=== PATIENT | female | born 1960 | race Caucasian/White ===

== ENCOUNTER 2018-04-30 16:45 | Emergency (ER) | payer SELFPAY ==
[~2018-04-30] VITALS: Ht 157.5 cm; Wt 54.4 kg
--- OUTSIDE RECORDS SUMMARY | 2018-04-30 16:47 | XMS REPORT ---
[facility] Address Unknown Phone Unavailable Care Team Providers Care Administrative Project Coordinator Name Role Phone Unavailable Unavailable Payers Payer Name Policy Type Policy Number Effective Date Expiration Date Problems This patient has no known problems. Allergies, Adverse Reactions, Alerts Allergy Name Allergy Type Status Severity Reaction(s) Onset Date Inactive Date Treating Clinician Comments No Known Allergies DA Active U 2018-04-30 00:00:00 No Known Allergies DA Active U 2017-03-22 00:00:00 Medications This patient has no known medications.
[2018-04-30] MEDS ORDERED: LABETALOL HCL 5 MG/ML 20ML VIAL IV STA (17:07)
--- NOTE | 2018-04-30 18:11 | Diagnostic Imaging Report ---
EXAMINATION: CHEST SINGLE (PORTABLE) INDICATION: Hypertension/back pain ^HTN ^[id number] ^[id number] COMPARISON: None FINDINGS: AP view TUBES and LINES: None. LUNGS: Lungs are well inflated. Lungs are clear. There is no evidence of pneumonia or pulmonary edema. PLEURA: No pleural effusion or pneumothorax. HEART AND MEDIASTINUM: Aortic calcifications. The cardiomediastinal silhouette is unremarkable. BONES AND SOFT TISSUES: No acute osseous lesion. Soft tissues are unremarkable. UPPER ABDOMEN: No free air under the diaphragm. IMPRESSION: No acute thoracic abnormality. Signed by: DR. Sawyer Dahl MD on 04/30/2018 6:07 PM
[2018-04-30] MEDS ORDERED: HYDROCODONE/APAP 5MG-325MG TAB PO ONE (18:15)
--- NOTE | 2018-04-30 19:26 | Diagnostic Imaging Report ---
Lumbar Spine Radiographs: 3 views HISTORY: Trauma, back pain.. COMPARISON: None available. DISCUSSION: Some of the osseous structures are partially obscured by stool and bowel gas. There are five non-rib bearing lumbar vertebral bodies. The alignment of the spine is within normal limits. No displaced fracture or compression deformity is identified. Disc Spaces: Mild disc space narrowing at L4-L5. Moderate disc space narrowing at L5-S1. Facets: Mild facet arthrosis of the lower lumbar spine. IMPRESSION: No acute radiographic abnormality. Signed by: DR. Sawyer Dahl MD on 04/30/2018 7:23 PM
[2018-04-30 20:25] VITALS: BP 176/101
[2018-05-22] MEDS ORDERED: ASPIR 8181 MG PO (17:13)
[2018-05-22] MEDS ORDERED: FOLIC ACID1 MG PO (17:13)
[2018-05-22] MEDS ORDERED: PEPCID20 MG PO (17:13)
[2018-05-22] MEDS ORDERED: KEFLEX500 MG PO (17:13)
[2018-05-22] MEDS ORDERED: FLAGYL500 MG PO (17:13)
[2018-05-22] MEDS ORDERED: VITAMIN B-1100 MG PO (17:13)
== END 2018-04-30 20:45 | disposition home or self-care (01) ==
LOC: ER 16:45
DX: M54.5 Low back pain (principal); S39.012A Strain of muscle, fascia and tendon of lower back, initial encounter; X50.0XXA Overexertion from strenuous movement or load, initial encounter; Y99.0 Civilian activity done for income or pay; I10 Essential (primary) hypertension; F17.210 Nicotine dependence, cigarettes, uncomplicated
CPT/HCPCS: 71045; 72110; 99283; J3490

== ENCOUNTER 2018-05-21 12:12 | Observation (INO) | payer SELFPAY ==
[~2018-05-21] VITALS: Ht 157.5 cm; Wt 52.6 kg
[2018-05-21] MEDS ORDERED: ASPIRIN 81 MG CHEW TAB PO STA (12:22)
[2018-05-21] MEDS ORDERED: SODIUM CHLORIDE 0.9% 1000ML 1,000 ML IV STA ×2 (12:22→14:57)
[2018-05-21] MEDS ORDERED: ONDANSETRON HCL 4 MG ORAL DISINTEGRATING TAB PO ONE (12:30)
[2018-05-21] MEDS ORDERED: ASPIRIN 81 MG CHEW TAB PO ONE ×2 (12:30→15:30)
[2018-05-21 13:01] LABS: BASOPHILS # (AUTO) 0.1 (0.0-0.1); BASOPHILS % 1.5 % (0.0-1.0); EOSINOPHILS # (AUTO) 0.1 (0.0-0.4); EOSINOPHILS % 2.9 % (0.0-6.0); HEMATOCRIT 41.2 % (34.2-44.1); HEMOGLOBIN 14.4 g/dL (12.0-16.0); LYMPHOCYTES # (AUTO) 1.8 (1.0-3.2); LYMPHOCYTES % 43.2 % (18.0-39.1); MEAN CORPUSCULAR HEMOGLOBIN 35.6 pg (28-32); MONOCYTES # (AUTO) 0.4 (0.2-0.8); MONOCYTES % 9.3 % (4.4-11.3); NEUTROPHILS # (AUTO) 1.8 (2.1-6.9); NEUTROPHILS % 42.6 % (38.7-80.0); PLATELET COUNT 247 x10e3/uL (140-360); RED BLOOD COUNT 4.04 x10e6/uL (3.6-5.1); RED CELL DISTRIBUTION WIDTH 14.1 % (11.7-14.4)
[2018-05-21 13:15] LABS: INR 0.86; PROTHROMBIN TIME 12.5 seconds (11.9-14.5)
[2018-05-21 13:16] LABS: PARTIAL THROMBOPLASTIN TIME 25.5 seconds (23.8-35.5)
[2018-05-21 13:25] LABS: ALANINE AMINOTRANSFERASE 27 IU/L (0-55); ALBUMIN/GLOBULIN RATIO 1.2 (0.8-2.0); ALKALINE PHOSPHATASE 99 IU/L (40-150); ANION GAP 19.6 mmol/L (8-16); BLOOD UREA NITROGEN 8 mg/dL (7-26); BUN/CREATININE RATIO 13 (6-25); CALCIUM 9.1 mg/dL (8.4-10.2); CARBON DIOXIDE 19 mmol/L (22-29); CHLORIDE 101 mmol/L (98-107); CREATINE KINASE 47 IU/L (29-168); CREATININE, SERUM 0.62 mg/dL (0.57-1.11); EST GLOMERULAR FILTRATION RATE > 60 ML/MIN (60-); GLUCOSE 159 mg/dL (74-118); LIPASE 73 U/L (8-78); SODIUM 137 mmol/L (136-145)
[2018-05-21 13:29] LABS: POTASSIUM 2.6 mmol/L (3.5-5.1)
[2018-05-21 13:44] LABS: THYROID STIMULATING HORMONE 0.633 uIU/mL (0.350-4.940)
[2018-05-21 14:07] LABS: CLARITY,URINE CLEAR (CLEAR); COLOR,URINE YELLOW (YELLOW)
[2018-05-21 14:08] LABS: AMPHETAMINES SCREEN,URINE NEGATIVE (NEGATIVE); BENZODIAZEPINES SCREEN,URINE NEGATIVE (NEGATIVE); BILIRUBIN,URINE NEGATIVE (NEGATIVE); KETONES,URINE NEGATIVE (NEGATIVE); LEUKOCYTE ESTERASE ,URINE NEGATIVE (NEGATIVE); NITRITE,URINE NEGATIVE (NEGATIVE); PHENCYCLIDINE SCREEN,URINE NEGATIVE (NEGATIVE); PROTEIN,URINE DIPSTICK NEGATIVE (NEGATIVE); URINE UROBILINOGEN 0.2 mg/dL (0.2 - 1)
[2018-05-21 14:16] LABS: BACTERIA,URINE MANY /HPF; EPITHELIAL CELLS,URINE MANY /LPF; TRANSITIONAL EPI CELLS,URINE MODERATE
[2018-05-21] MEDS ORDERED: POTASSIUM CHLORIDE 20 MEQ TAB CR PO NR (14:30)
[2018-05-21] MEDS ORDERED: SODIUM CHLORIDE 0.9% 1000ML 1,000 ML ONE (15:00)
[2018-05-21] MEDS ORDERED: SODIUM CHLORIDE FLUSH 10 ML SYR INJ PRN (15:30)
[2018-05-21] MEDS ORDERED: NITROGLYCERIN 0.4 MG SUBL SL PRN (15:30)
[2018-05-21] MEDS ORDERED: ATENOLOL50 MG PO (16:16)
[2018-05-21] MEDS ORDERED: POTASSIUM CHLORIDE 20MEQ/100ML 100 ML IV ONE (16:30)
[2018-05-21] MEDS: FAMOTIDINE 20 MG/2 ML VIAL IV SCH (16:44)
[2018-05-21 16:45] VITALS: BP 185/98
[2018-05-21 17:00] VITALS: BP 185/98
[2018-05-21] MEDS: CLONIDINE HCL 0.1 MG TAB PO PRN (17:06)
[2018-05-21 17:49] VITALS: BP 163/84
[2018-05-21 19:32] VITALS: BP 158/87
[2018-05-21 21:00] VITALS: BP 158/87
[2018-05-21 21:20] LABS: CREATINE KINASE MB 0.8 ng/mL (0-5.0)
[2018-05-22] MEDS: CLONIDINE HCL 0.1 MG TAB PO PRN ×2 (01:26→09:04)
[2018-05-22 01:27] VITALS: BP 179/98
[2018-05-22 04:50] VITALS: BP 140/97
[2018-05-22] MEDS: FAMOTIDINE 20 MG/2 ML VIAL IV SCH ×2 (04:51→16:50)
[2018-05-22 05:25] LABS: BASOPHILS % 0.7 % (0.0-1.0); EOSINOPHILS # (AUTO) 0.1 (0.0-0.4); EOSINOPHILS % 2.2 % (0.0-6.0); HEMATOCRIT 34.1 % (34.2-44.1); HEMOGLOBIN 11.3 g/dL (12.0-16.0); LYMPHOCYTES % 36.6 % (18.0-39.1); MEAN CORPUSCULAR HGB CONC 33.1 g/dL (31-35); MEAN CORPUSCULAR VOLUME 105.6 fL (81-99); MONOCYTES # (AUTO) 0.5 (0.2-0.8); MONOCYTES % 8.8 % (4.4-11.3); NEUTROPHILS # (AUTO) 2.9 (2.1-6.9); NEUTROPHILS % 51.3 % (38.7-80.0); PLATELET COUNT 174 x10e3/uL (140-360); RED BLOOD COUNT 3.23 x10e6/uL (3.6-5.1); RED CELL DISTRIBUTION WIDTH 13.8 % (11.7-14.4)
[2018-05-22 05:41] LABS: CREATINE KINASE MB 0.7 ng/mL (0-5.0)
[2018-05-22 06:21] LABS: ALANINE AMINOTRANSFERASE 22 IU/L (0-55); ALBUMIN 3.3 g/dL (3.5-5.0); ALBUMIN/GLOBULIN RATIO 1.3 (0.8-2.0); ALKALINE PHOSPHATASE 75 IU/L (40-150); ANION GAP 13.9 mmol/L (8-16); BLOOD UREA NITROGEN 5 mg/dL (7-26); BUN/CREATININE RATIO 9 (6-25); CALCIUM 8.5 mg/dL (8.4-10.2); CARBON DIOXIDE 22 mmol/L (22-29); CHLORIDE 106 mmol/L (98-107); CHOL/HDL RATIO 2.6 (3.0-3.6); CHOLESTEROL 152 MD/DL (0-199); CREATININE, SERUM 0.53 mg/dL (0.57-1.11); EST GLOMERULAR FILTRATION RATE > 60 ML/MIN (60-); GLUCOSE 95 mg/dL (74-118); HDL CHOLESTEROL 58 MG/DL (40-60); LDL CHOLESTEROL 52 MG/DL (60-130); SODIUM 139 mmol/L (136-145); TRIGLYCERIDES 211 MG/DL (0-149)
[2018-05-22 06:33] LABS: POTASSIUM 2.9 mmol/L (3.5-5.1)
[2018-05-22] MEDS ORDERED: POTASSIUM CHLORIDE 20 MEQ TAB CR PO NR ×2 (07:15)
[2018-05-22] MEDS ORDERED: POTASSIUM CHLORIDE 10MEQ EA PO NR (07:30)
--- NOTE | 2018-05-22 08:02 | Diagnostic Imaging Report ---
PROCEDURE: Frontal and lateral views of the chest. COMPARISON: None. INDICATIONS: SHARP BACK PAIN, VOMITING, SHORTNESS OF BREATH FINDINGS: Lines/tubes: None. Lungs: The lungs are well inflated and clear. There is no evidence of pneumonia or pulmonary edema. Pleura: There is no pleural effusion or pneumothorax. Heart and mediastinum: The cardiomediastinal silhouette is unremarkable. Atherosclerotic aortic calcifications. Bones: No acute bony abnormality. IMPRESSION: No acute radiographic abnormality. Dictated by: DINO HINOJOSA M.D. on 05/22/2018 at 8:11 Electronically approved by: DNIO HINOJOSA M.D. on 05/22/2018 at 8:11
[2018-05-22 08:59] VITALS: BP 178/98
[2018-05-22 09:00] VITALS: BP 178/98
[2018-05-22] MEDS ORDERED: ASPIRIN 325 MG TAB EC PO SCH (09:00)
[2018-05-22] MEDS ORDERED: ATENOLOL 50 MG TAB PO SCH (10:00)
[2018-05-22 12:00] VITALS: BP 156/82
[2018-05-22 15:59] VITALS: BP 149/83
[2018-05-22] MEDS ORDERED: ASPIR 8181 MG PO (17:13)
[2018-05-22] MEDS ORDERED: KEFLEX500 MG PO (17:13)
[2018-05-22] MEDS ORDERED: VITAMIN B-1100 MG PO (17:13)
[2018-05-22] MEDS ORDERED: PEPCID20 MG PO (17:13)
[2018-05-22] MEDS ORDERED: FOLIC ACID1 MG PO (17:13)
[2018-05-22] MEDS ORDERED: FLAGYL500 MG PO (17:13)
--- NOTE | 2018-05-23 01:47 | Discharge Summary ---
PRINCIPAL DIAGNOSES 1. Urinary tract infection. 2. Hypertension. 3. Hypokalemia. 4. Metabolic acidosis. 5. Dehydration. 6. Alcohol intoxication. 7. Acute gastroenteritis. SECONDARY DIAGNOSIS: Hypertension. CHIEF COMPLAINT: Back pain. HISTORY OF PRESENT ILLNESS: This is a 57-year-old woman with back pain. Please refer to H and P for further details. HOSPITAL COURSE: Treated for urinary tract infection. She has chronic diarrhea, but seemed to have acute gastroenteritis. She was given Flagyl and also given Keflex for urinary tract infection. The patient had metabolic acidosis and dehydration. Received IV fluids. Hypokalemia was replaced with potassium regimen. The patient had alcohol intoxication and counseled on alcohol cessation. The patient did well. Subsequently, discharged home. DISCHARGE MEDICATIONS: Per electronic medical record and include Keflex and Flagyl for 5 days. FOLLOWUP APPOINTMENT: Follow up with me in 1 week. CONDITION ON DISCHARGE: Stable. ARTIE SADLER MD Job#: [id number]
--- NOTE | 2018-05-23 02:19 | History and Physical ---
PRIMARY CARE PHYSICIAN: None. CHIEF COMPLAINT: Back pain and diarrhea. HISTORY OF PRESENT ILLNESS: This is a 57-year-old woman with the history of chronic intermittent diarrhea and back pain, now developing worsening back pain. Rates the pain as dull. Here, this patient was found to have urinary tract infection. She was admitted for further evaluation and management. PAST MEDICAL HISTORY: Hypertension, cigarette use, chronic diarrhea. PAST SURGICAL HISTORY: None. ALLERGIES: PER ELECTRONIC MEDICAL RECORD. FAMILY HISTORY/SOCIAL HISTORY: Patient is . Occasional alcohol. Half a pack of cigarette per day. MEDICATIONS: Per electronic medical record. REVIEW OF SYSTEMS: Denies any dizziness, chest pain. Denies any fever, chills, sweats, nausea, vomiting, diarrhea, headache, leg pain. PHYSICAL EXAMINATION VITAL SIGNS: Reviewed. GENERAL APPEARANCE: Tired-appearing woman resting in bed. HEENT: Anicteric. CARDIOVASCULAR: Normal S1 and S2. LUNGS: Moderate breath sounds. ABDOMEN: Soft, nontender, nondistended. EXTREMITIES: No edema or calf tenderness. NEUROLOGIC: Awake, alert, oriented x3, moves all extremities. SKIN: Dry. PSYCHIATRIC: Flat affect. LABS: Reviewed. MEDICATIONS: Reviewed. ASSESSMENT AND PLAN: A 57-year-old woman with, 1. Urinary tract infection. 2. Hypertension. 3. Hypokalemia. 4. Metabolic acidosis. 5. Dehydration. 6. Alcohol intoxication. 7. Acute versus chronic gastroenteritis. 8. Chronic intermittent diarrhea. PLAN 1. Continue antibiotics. Plan to discharge home on Keflex. 2. Use Flagyl for gastroenteritis. 3. Rehydrate the patient. 4. Replace potassium. 5. Possible discharge later today. 6. SCD for prophylaxis. Job#: [id number]
[2018-05-23] MEDS ORDERED: FOLIC ACID 1 MG TAB PO SCH (09:00)
[2018-05-23] MEDS ORDERED: THIAMINE HCL 100 MG TAB PO SCH (09:00)
== END 2018-05-22 18:16 | disposition home or self-care (01) ==
LOC: ER 12:12 → ERHOLD 15:34 → IMCU 16:59
PROVIDERS: ADMIT Internal Medicine; ATTEND Internal Medicine
DX: N39.0 Urinary tract infection, site not specified (principal); R07.89 Other chest pain; R00.2 Palpitations; R00.0 Tachycardia, unspecified; E87.6 Hypokalemia; F17.210 Nicotine dependence, cigarettes, uncomplicated; I10 Essential (primary) hypertension; E87.2 Acidosis; E86.0 Dehydration; F10.120 Alcohol abuse with intoxication, uncomplicated; K52.9 Noninfective gastroenteritis and colitis, unspecified; K52.89 Other specified noninfective gastroenteritis and colitis
CPT/HCPCS: 36415 ×2; 71046; 80053 ×2; 80061; 80307; 80320; 81001; 82550 ×2; 82553 ×2; 83690; 83880; 84132; 84443; 84484 ×2; 85025 ×2; 85379; 85610; 85730; 87086; 93005; 99285; G0378 ×2; J3480; J7030; Q0162

== ENCOUNTER 2018-07-01 15:35 | Emergency (ER) | payer SELFPAY ==
[~2018-07-01] VITALS: Ht 157.5 cm; Wt 52.6 kg
[~2018-07-01 15:35] MED LIST: ASPIR 8181 MG PO; ATENOLOL50 MG PO; FLAGYL500 MG PO; FOLIC ACID1 MG PO; KEFLEX500 MG PO; PEPCID20 MG PO; VITAMIN B-1100 MG PO
[2018-07-01 16:39] LABS: BASOPHILS # (AUTO) 0.1 (0.0-0.1); BASOPHILS % 1.4 % (0.0-1.0); EOSINOPHILS # (AUTO) 0.1 (0.0-0.4); HEMATOCRIT 43.7 % (34.2-44.1); HEMOGLOBIN 15.2 g/dL (12.0-16.0); LYMPHOCYTES # (AUTO) 1.9 (1.0-3.2); LYMPHOCYTES % 37.5 % (18.0-39.1); MEAN CORPUSCULAR HEMOGLOBIN 34.7 pg (28-32); MEAN CORPUSCULAR HGB CONC 34.8 g/dL (31-35); MEAN CORPUSCULAR VOLUME 99.8 fL (81-99); MONOCYTES # (AUTO) 0.5 (0.2-0.8); NEUTROPHILS # (AUTO) 2.5 (2.1-6.9); NEUTROPHILS % 49.7 % (38.7-80.0); PLATELET COUNT 243 x10e3/uL (140-360); RED BLOOD COUNT 4.38 x10e6/uL (3.6-5.1); RED CELL DISTRIBUTION WIDTH 13.9 % (11.7-14.4)
[2018-07-01 16:48] LABS: INR 0.86; PARTIAL THROMBOPLASTIN TIME 26.4 seconds (23.8-35.5); PROTHROMBIN TIME 12.5 seconds (11.9-14.5)
[2018-07-01 16:51] LABS: ALANINE AMINOTRANSFERASE 54 IU/L (0-55); ALBUMIN 4.3 g/dL (3.5-5.0); ALBUMIN/GLOBULIN RATIO 1.1 (0.8-2.0); ALKALINE PHOSPHATASE 91 IU/L (40-150); ANION GAP 24.4 mmol/L (8-16); BLOOD UREA NITROGEN 9 mg/dL (7-26); BUN/CREATININE RATIO 15 (6-25); CALCIUM 9.5 mg/dL (8.4-10.2); CARBON DIOXIDE 17 mmol/L (22-29); CHLORIDE 103 mmol/L (98-107); CREATINE KINASE 45 IU/L (29-168); CREATININE, SERUM 0.61 mg/dL (0.57-1.11); EST GLOMERULAR FILTRATION RATE > 60 ML/MIN (60-); GLUCOSE 101 mg/dL (74-118); POTASSIUM 3.4 mmol/L (3.5-5.1); SODIUM 141 mmol/L (136-145)
[2018-07-01 17:22] LABS: CLARITY,URINE CLEAR (CLEAR); COLOR,URINE YELLOW (YELLOW)
[2018-07-01 17:23] LABS: BILIRUBIN,URINE NEGATIVE (NEGATIVE); KETONES,URINE NEGATIVE (NEGATIVE); LEUKOCYTE ESTERASE ,URINE NEGATIVE (NEGATIVE); NITRITE,URINE NEGATIVE (NEGATIVE); PROTEIN,URINE DIPSTICK NEGATIVE (NEGATIVE); URINE UROBILINOGEN 0.2 mg/dL (0.2 - 1)
[2018-07-01 17:25] LABS: BACTERIA,URINE MANY /HPF; EPITHELIAL CELLS,URINE FEW /LPF
[2018-07-01 17:26] LABS: AMPHETAMINES SCREEN,URINE NEGATIVE (NEGATIVE); BENZODIAZEPINES SCREEN,URINE NEGATIVE (NEGATIVE); PHENCYCLIDINE SCREEN,URINE NEGATIVE (NEGATIVE)
--- NOTE | 2018-07-01 18:41 | Diagnostic Imaging Report ---
EXAMINATION: CHEST SINGLE (PORTABLE) COMPARISON: Chest x-ray 05/21/2018 INDICATION: Heart palpitations DISCUSSION: Frontal view of the chest obtained at 1655 hours. HEART AND MEDIASTINUM: The cardiomediastinal silhouette is unremarkable. LINES: None. LUNGS: The lungs are well inflated and clear. No pneumonia or pulmonary edema. PLEURA: No pleural effusion or pneumothorax. BONES AND SOFT TISSUES: No focal osseous lesion. The soft tissues are normal. IMPRESSION: No acute cardiopulmonary disease. Signed by: Dr. Michelle De La Garza MD on 07/01/2018 6:37 PM
== END 2018-07-01 18:02 | disposition home or self-care (01) ==
LOC: ER 15:35
DX: R00.2 Palpitations (principal); R00.0 Tachycardia, unspecified; F10.229 Alcohol dependence with intoxication, unspecified; I10 Essential (primary) hypertension; Z91.14 Patient's other noncompliance with medication regimen; F17.210 Nicotine dependence, cigarettes, uncomplicated
CPT/HCPCS: 36415; 71045; 80053; 80307; 80320; 81001; 82550; 82553; 83880; 84484; 85025; 85610; 85730; 93005; 99284

== ENCOUNTER 2021-03-03 17:08 | Emergency (ER) | payer SELFPAY ==
[~2021-03-03] VITALS: Ht 157.5 cm; Wt 52.6 kg
[2021-03-03] MEDS ORDERED: HYDROCODON-ACE1 EAC9 PO (21:58)
[2021-03-03] MEDS ORDERED: HYDROCODONE/APAP 7.5MG-325MG 1 EA TAB PO ONE (22:00)
[2021-03-03 23:47] VITALS: BP 131/83
== END 2021-03-03 23:50 | disposition home or self-care (01) ==
LOC: ER 17:16
DX: S32.692A Other specified fracture of left ischium, initial encounter for closed fracture (principal); W18.30XA Fall on same level, unspecified, initial encounter
CPT/HCPCS: 70450; 72192; 99283

== ENCOUNTER 2021-09-21 17:38 | Inpatient (IN) | payer SELFPAY ==
[~2021-09-21] VITALS: Ht 157.5 cm; Wt 38.1 kg
[~2021-09-21 17:38] MED LIST changes: +HYDROCODON-ACE1 EAC9 PO
[2021-09-21] MEDS ORDERED: HYDROCODONE/APAP 5MG-325MG TAB PO ONE (18:45)
[2021-09-21] MEDS ORDERED: Morphine 4mg Syringe 4 MG/ML INJ IV STA (20:14)
[2021-09-21 20:28] LABS: BASOPHILS % 0.2 % (0.0-1.0); EOSINOPHILS % 0.1 % (0.0-6.0); HEMATOCRIT 29.9 % (34.2-44.1); HEMOGLOBIN 10.4 g/dL (12.0-16.0); LYMPHOCYTES # (AUTO) 1.1 (1.0-3.2); LYMPHOCYTES % 7.3 % (18.0-39.1); MEAN CORPUSCULAR HEMOGLOBIN 33.3 pg (28-32); MEAN CORPUSCULAR HGB CONC 34.8 g/dL (31-35); MEAN CORPUSCULAR VOLUME 95.8 fL (81-99); MONOCYTES # (AUTO) 1.4 (0.2-0.8); MONOCYTES % 9.1 % (4.4-11.3); NEUTROPHILS # (AUTO) 12.4 (2.1-6.9); PLATELET COUNT 221 x10e3/uL (140-360); RED BLOOD COUNT 3.12 x10e6/uL (3.6-5.1); RED CELL DISTRIBUTION WIDTH 14.9 % (11.7-14.4)
[2021-09-21 20:34] LABS: INR 0.85; PROTHROMBIN TIME 12.4 seconds (11.9-14.5)
[2021-09-21 20:35] LABS: PARTIAL THROMBOPLASTIN TIME 25.8 seconds (23.8-35.5)
[2021-09-21 20:44] LABS: ALBUMIN 3.7 g/dL (3.5-5.0); ALBUMIN/GLOBULIN RATIO 0.9 (0.8-2.0); ANION GAP 19.3 mmol/L (8-16); CALCIUM 9.4 mg/dL (8.4-10.2); CREATININE, SERUM 0.67 mg/dL (0.57-1.11); POTASSIUM 3.3 mmol/L (3.5-5.1)
[2021-09-21 20:51] LABS: CREATINE KINASE MB 4.3 ng/mL (0-5.0)
[2021-09-21 21:00] VITALS: BP 156/97
[2021-09-21 23:01] VITALS: BP 151/93
[2021-09-22] VITALS: BP 181/99
[2021-09-22] MEDS ORDERED: Morphine 2mg Syringe 2 MG/ML SYR IV PRN ×2 (00:45→16:30)
[2021-09-22] MEDS ORDERED: ACETAMINOPHEN 325 MG TAB PO PRN (00:45)
[2021-09-22] MEDS ORDERED: ONDANSETRON HCL INJ 2MG/ML 2ML 2 MG/ML VIAL IV PRN (00:45)
[2021-09-22] MEDS: CLONIDINE HCL 0.1 MG TAB PO PRN (03:46)
[2021-09-22 04:00] VITALS: BP 162/91
[2021-09-22 05:07] LABS: INR 0.84; PROTHROMBIN TIME 12.3 seconds (11.9-14.5)
[2021-09-22 05:08] LABS: PARTIAL THROMBOPLASTIN TIME 30.3 seconds (23.8-35.5)
[2021-09-22 08:32] VITALS: BP 146/84
[2021-09-22] MEDS: KCL 20MEQ/.9 SOD CHL 1,000 ML IV SCH ×2 (11:45→21:47)
[2021-09-22] MEDS ORDERED: CEFTRIAXONE 1 GM in SODIUM CHLORIDE 0.9% 50ML 50 ML IV ONE (12:00)
[2021-09-22] MEDS ORDERED: POTASSIUM CHLORIDE 20MEQ/100ML 100 ML IV ONE ×2 (12:00→20:00)
[2021-09-22] MEDS ORDERED: SODIUM CHLORIDE 0.9% 250ML 250 ML ONE ×2 (12:02→13:50)
[2021-09-22 12:12] VITALS: BP 129/95
[2021-09-22] MEDS ORDERED: FENTANYL CITRATE/PF 100MCG/2 ML INJ ONE ×2 (13:13→16:38)
[2021-09-22] MEDS ORDERED: MIDAZOLAM HCL 2 MG/2 ML VIAL ONE (13:13)
[2021-09-22] MEDS ORDERED: ONDANSETRON HCL INJ 2MG/ML 2ML 2 MG/ML VIAL ONE ×2 (13:14→17:13)
[2021-09-22] MEDS ORDERED: LIDOCAINE HCL 2% LOCAL INJ 5 ML SDV VIAL INJ ONE (13:14)
[2021-09-22] MEDS ORDERED: SEVOFLURANE INHAL SOLN 250 ML PEN BTL ONE (13:14)
[2021-09-22] MEDS ORDERED: POVIDONE IODINE 0.05% 0.05 % ML PO ONE (13:14)
[2021-09-22] MEDS ORDERED: PROPOFOL IV EMULSION 10 MG/ML 20 ML VIAL ONE (13:14)
[2021-09-22] MEDS ORDERED: DEXAMETHASONE SOD PHOS INJ 4 MG/ML SDV ONE (13:14)
[2021-09-22] MEDS ORDERED: GLYCOPYRROLATE INJ 0.2 MG/ML VIAL ONE (13:14)
[2021-09-22] MEDS ORDERED: NEOSTIGMINE 1 MG/ML 10ML VIAL ONE (13:14)
[2021-09-22] MEDS ORDERED: Vancomycin IV 1 GM VIAL ONE ×2 (13:24→13:50)
[2021-09-22] MEDS ORDERED: BUPIVACAINE HCL 0.5% INJ 30 ML VIAL INJ ONE (13:25)
[2021-09-22] MEDS ORDERED: Vancomycin IV 1 GM in SODIUM CHLORIDE 0.9% 250ML 250 ML IV ONE (16:30)
[2021-09-22] MEDS ORDERED: KETOROLAC TROMETHAMINE 10 MG TAB PO PRN (16:30)
[2021-09-22] MEDS ORDERED: Morphine 4mg Syringe 4 MG/ML INJ IV PRN (16:30)
[2021-09-22] MEDS ORDERED: HYDROCODONE/APAP 10MG-325MG TAB PO PRN (16:30)
[2021-09-22] MEDS ORDERED: LABETALOL HCL 0 ML ONE (16:38)
[2021-09-22] MEDS ORDERED: ROPIVACAINE 0.5% 5 MG/ML 30 ML SDV ONE (16:49)
[2021-09-22] MEDS: HYDROCODONE/APAP 5MG-325MG TAB PO PRN (18:58)
[2021-09-22 21:19] VITALS: BP 134/98
[2021-09-23] VITALS: BP 168/92
[2021-09-23] MEDS: CLONIDINE HCL 0.1 MG TAB PO PRN
[2021-09-23 04:00] VITALS: BP 175/89
[2021-09-23] MEDS: HYDROCODONE/APAP 5MG-325MG TAB PO PRN (04:30)
[2021-09-23 04:58] LABS: BASOPHILS % 0.3 % (0.0-1.0); EOSINOPHILS % 0.1 % (0.0-6.0); HEMATOCRIT 24.3 % (34.2-44.1); HEMOGLOBIN 8.2 g/dL (12.0-16.0); LYMPHOCYTES # (AUTO) 0.8 (1.0-3.2); MEAN CORPUSCULAR HEMOGLOBIN 33.9 pg (28-32); MEAN CORPUSCULAR HGB CONC 33.7 g/dL (31-35); MEAN CORPUSCULAR VOLUME 100.4 fL (81-99); MONOCYTES % 13.1 % (4.4-11.3); NEUTROPHILS # (AUTO) 5.7 (2.1-6.9); NEUTROPHILS % 75.7 % (38.7-80.0); PLATELET COUNT 167 x10e3/uL (140-360); RED BLOOD COUNT 2.42 x10e6/uL (3.6-5.1); RED CELL DISTRIBUTION WIDTH 15.1 % (11.7-14.4)
[2021-09-23 05:20] LABS: ANION GAP 14.3 mmol/L (8-16); CALCIUM 9.2 mg/dL (8.4-10.2); CREATININE, SERUM 0.72 mg/dL (0.57-1.11); POTASSIUM 3.3 mmol/L (3.5-5.1)
[2021-09-23] MEDS: LORAZEPAM 0.5 MG TAB PO SCH ×3 (06:00→12:15)
[2021-09-23] MEDS ORDERED: POTASSIUM CHLORIDE 20 MEQ TAB CR PO STA (06:40)
[2021-09-23] MEDS: KCL 20MEQ/.9 SOD CHL 1,000 ML IV SCH (07:45)
[2021-09-23 08:00] VITALS: BP 137/76
[2021-09-23 08:54] VITALS: BP 137/76
[2021-09-23 12:04] VITALS: BP 160/88
== END 2021-09-23 15:48 | disposition home or self-care (01) | DRG 494 ==
LOC: ER 17:54 → ERHOLD 20:04 → MED/SURG 21:48
PROVIDERS: ADMIT Family Medicine; ATTEND Family Medicine
PROC: 0PSC04Z Reposition Right Humeral Head with Internal Fixation Device, Open Approach (ICD-10-PCS; principal; 2021-09-22 13:59)
DX: S42.211A Unspecified displaced fracture of surgical neck of right humerus, initial encounter for closed fracture (principal); W18.2XXA Fall in (into) shower or empty bathtub, initial encounter; Y93.89 Activity, other specified; Y92.002 Bathroom of unspecified non-institutional (private) residence as the place of occurrence of the external cause; F10.10 Alcohol abuse, uncomplicated; J44.9 Chronic obstructive pulmonary disease, unspecified; F17.200 Nicotine dependence, unspecified, uncomplicated; Z20.822 Contact with and (suspected) exposure to COVID-19; Z88.1 Allergy status to other antibiotic agents
CPT/HCPCS: 36415; 71045; 76000; 80048; 80053; 82550; 82553; 84484; 85025; 85610; 85730; 86850; 86900; 93005; 93041; 94799; 99284; C1713; J0696; J1100; J2001; J2250; J2270; J2405; J2710; J2795; J3010; J3370; J3480; J7050; U0002